=== PATIENT | male | born 1955 | race Caucasian/White ===

== ENCOUNTER 2019-04-29 08:28 | Day surgery (SDC) | payer MEDICARE, MEDICAID ==
[~2019-04-29] VITALS: Ht 188 cm; Wt 132.8 kg
[2019-04-29] VITALS (9 sets, daily range): BP systolic 108–136; BP diastolic 64–76
[~2019-04-29 08:28] MED LIST: ASPI-611 PO; ATOR20TA66 PO; COU4T PO; DOCU-28 PO; ESCI20TA PO; LORA10TA7 PO; METO25TA6 PO; MILK200C4 PO; PANT-47 PO; PER10325T PO; VITA1TAB20 PO; WARF-65 PO
[2019-04-29] MEDS ORDERED: diphenhydrAMINE 25mg capsule PO PRN (08:55)
[2019-04-29] MEDS ORDERED: normal saline 1,000 ML IV SCH (08:55)
[2019-04-29] MEDS ORDERED: RIVA20TA PO (09:11)
[2019-04-29 09:32] LABS: BASOPHILS # (AUTO) 0.1 X10'3 (0-0.2); BASOPHILS % (AUTO) 1.3 % (0-1); EOSINOPHILS # (AUTO) 0.2 X10'3 (0-0.9); EOSINOPHILS % (AUTO) 2.3 % (0-6); HEMATOCRIT 42.5 % (42.0-52.0); LYMPHOCYTES # (AUTO) 1.7 X10'3 (1.1-4.8); LYMPHOCYTES % (AUTO) 22.5 % (21-51); MEAN CORPUSCULAR HEMOGLOBIN 29.8 PG (27.0-31.0); MEAN CORPUSCULAR HGB CONC 32.9 g/dL (33.0-36.5); MEAN CORPUSCULAR VOLUME 90.6 FL (78-98); MEAN PLATELET VOLUME 9.1 FL (7.4-10.4); MONOCYTES # (AUTO) 0.6 X10'3 (0-0.9); MONOCYTES % (AUTO) 8.2 % (2-12); NEUTROPHILS # (AUTO) 4.8 X10'3 (1.8-7.7); NEUTROPHILS % (AUTO) 65.7 % (42-75); PLATELET COUNT 154 X10'3 (140-440); RED BLOOD COUNT 4.69 X10'6 (4.70-6.10); RED CELL DISTRIBUTION WIDTH 17.5 % (11.5-14.5); WHITE BLOOD COUNT 7.3 X10'3 (4.5-11.0)
[2019-04-29 09:44] LABS: ALBUMIN 4.4 G/DL (3.4-5.0); ANION GAP 7 (8-16); BLOOD UREA NITROGEN 18 MG/DL (7-18); BUN/CREATININE RATIO 21.7 (5.4-32.0); CALCIUM 8.9 MG/DL (8.5-10.1); CHLORIDE 102 MMOL/L (99-107); CREATININE 0.83 MG/DL (0.60-1.10); GLUCOSE 97 MG/DL (70-104); MAGNESIUM 1.6 MG/DL (1.5-2.4); POTASSIUM 4.4 MMOL/L (3.5-5.1); SODIUM 137 MMOL/L (135-145); TOTAL CARBON DIOXIDE 28.2 MMOL/L (24-32); eGFR > 90 ML/MIN
[2019-04-29] MEDS ORDERED: LIDOcaine 1% (10mg/ml)w/preservative injection 20ml MDV ONE (11:55)
[2019-04-29] MEDS ORDERED: iohexol 350 MG/ML 50ML vial IV ONE ×2 (11:55→12:53)
[2019-04-29] MEDS ORDERED: midazolam 2 mg/2 ml injection ONE ×4 (11:55→12:46)
[2019-04-29] MEDS ORDERED: fentaNYL/PF 50MCG/1 ML 2ML syringe ONE (11:55)
[2019-04-29] MEDS ORDERED: iohexol 350MG/ML 100ml bottle IV ONE (11:56)
== END 2019-04-29 16:30 | disposition home or self-care (01) ==
LOC: SSTAY O 08:28
PROVIDERS: ATTEND Internal Medicine Cardiovascular Disease
DX: R94.30 Abnormal result of cardiovascular function study, unspecified (principal); I10 Essential (primary) hypertension; Z87.891 Personal history of nicotine dependence; Z86.73 Personal history of transient ischemic attack (TIA), and cerebral infarction without residual deficits; E66.9 Obesity, unspecified; Z96.662 Presence of left artificial ankle joint; Z79.82 Long term (current) use of aspirin; Z79.899 Other long term (current) drug therapy; Z86.19 Personal history of other infectious and parasitic diseases
CPT/HCPCS: 36415; 80048; 83735; 85025; 85610; 93005; 93458; 99152; 99153; C1769; C1894; J1644; J2001; J2250; J3010; J7030; Q0163; Q9967; A4620; A6258; C1760

== ENCOUNTER 2022-12-29 07:53 | Inpatient (IN) | payer MEDICARE, MEDICAID ==
[2022-12-24 12:03] LABS: BASOPHILS # (AUTO) 0.1 X10'3 (0-0.2); EOSINOPHILS # (AUTO) 0.2 X10'3 (0-0.9); EOSINOPHILS % (AUTO) 2.7 % (0-6); LYMPHOCYTES # (AUTO) 1.2 X10'3 (1.1-4.8); LYMPHOCYTES % (AUTO) 20.7 % (21-51); MEAN CORPUSCULAR HGB CONC 33.3 g/dL (33.0-36.5); MEAN PLATELET VOLUME 8.8 FL (7.4-10.4); MONOCYTES # (AUTO) 0.6 X10'3 (0-0.9); MONOCYTES % (AUTO) 10.3 % (2-12); NEUTROPHILS # (AUTO) 3.9 X10'3 (1.8-7.7); NEUTROPHILS % (AUTO) 65.3 % (42-75); PRE OP HEMATOCRIT 41.2 % (42.0-52.0); PRE OP HEMOGLOBIN 13.7 g/dL (14.0-17.9); PRE OP PLATELET COUNT 130 X10'3 (140-440); RED BLOOD COUNT 4.16 X10'6 (4.70-6.10); RED CELL DISTRIBUTION WIDTH 15.2 % (11.5-14.5)
[2022-12-24 12:48] LABS: ALBUMIN 4.2 G/DL (3.4-5.0); ALBUMIN/GLOBULIN RATIO 1.2 (1.1-1.5); ALKALINE PHOSPHATASE 82 IU/L (46-116); BLOOD UREA NITROGEN 17 MG/DL (7-18); CALCIUM 8.8 MG/DL (8.5-10.1); CHLORIDE 107 MMOL/L (99-107); CREATININE 0.68 MG/DL (0.60-1.10); PRE OP ALT 28 U/L (30-65); PRE OP ANION GAP 7 (8-16); PRE OP AST 25 U/L (10-37); PRE OP GLUCOSE 101 MG/DL (70-104); PRE OP POTASSIUM 4.4 MMOL/L (3.4-5.1); PRE OP SODIUM 141 MMOL/L (135-145); TOTAL CARBON DIOXIDE 27.2 MMOL/L (24-32); TOTAL PROTEIN 7.7 G/DL (6.4-8.2); eGFR > 90 ML/MIN
[2022-12-24 12:59] LABS: PRE OP BILIRUB, TOTAL 0.6 MG/DL (0.0-1.0)
[2022-12-29] VITALS (24 sets, daily range): BP systolic 94–127; BP diastolic 45–98
[~2022-12-29] VITALS: Ht 188 cm; Wt 99.5 kg
[~2022-12-29 07:53] MED LIST changes: -ASPI-611 PO; +BACL10TA7 PO; -COU4T PO; +CYAN500T71 PO; +DIPH25CA83 PO; -DOCU-28 PO; +DOCUMENT DATE & TIME OF BETA-BLOCKER PO ONE; -ESCI20TA PO; +ESCI20TA36 PO; +HYDR-3973 PO; +LOP25T PO; -LORA10TA7 PO; -METO25TA6 PO; -MILK200C4 PO; +NITR0.4T51 SL; -PER10325T PO; +RIVA20TA PO; -VITA1TAB20 PO; +VITA400T10 PO; -WARF-65 PO; +cefazolin 2gm/D5W 100mL 100 ML IV ONE; +famotidine 20mg tablet PO ONE; +ringers solution, lacted 1,000 ML IV SCH; +tranexamic acid 650mg tablet PO ONE; +vancomycin 1,500 MG in NS 300ml IV soln IV ONE
--- NOTE | 2022-12-29 08:00 | NUR ---
CSM: PULSES PRESENT AND MARKED. MUPIROCIN CREAM WAS USED. PATIENT DID NOT WATCH THE VIDEO. EDUCATED PATIENT ON THE USE OF THE INCETIVE SPIROMETER AND ITS IMPORTANCE
[2022-12-29] MEDS ORDERED: ketorolac trometh. 30mg/ml inj. ONE (09:47)
[2022-12-29] MEDS ORDERED: ROPIVAcaine 0.5% (5mg/ml) 30ml vial ONE ×2 (09:47→11:55)
[2022-12-29] MEDS ORDERED: fentaNYL/PF 50MCG/1 ML 2ML syringe ONE (10:38)
[2022-12-29] MEDS ORDERED: midazolam 1 mg/ML 2ml injection ONE (10:39)
[2022-12-29] MEDS ORDERED: ePHEDrine 50MG/ML INJ. ONE (11:55)
[2022-12-29] MEDS ORDERED: ondansetron/PF 4mg/2ml inj ONE (11:55)
[2022-12-29] MEDS ORDERED: acetaminophen 1,000mg/100ml IV 100 ML IV ONE (11:55)
[2022-12-29] MEDS ORDERED: propofol inj 20 ML IV ONE (11:55)
[2022-12-29] MEDS ORDERED: LIDOcaine 1%/PF 5ML 10 MG/ML VIAL ONE (11:55)
[2022-12-29] MEDS ORDERED: dexamethasone sod phosphate 4mg/ml inj. ONE (11:55)
[2022-12-29] MEDS ORDERED: glycopyrrolate 0.2mg/ml inj ONE (11:55)
[2022-12-29] MEDS ORDERED: ringers solution, lacted 1,000 ML IV SCH (12:00)
[2022-12-29] MEDS ORDERED: ROPIVAcaine 0.2% (10 MG/5 ML) BOLUS INJECTION INTERSCALE PRN (12:00)
[2022-12-29] MEDS ORDERED: ondansetron/PF 4mg/2ml inj IV PRN ×2 (12:00→12:15)
[2022-12-29] MEDS ORDERED: ROPIVAcaine 0.2%/PF PUMP/bolus 550 ML INTERSCALE SCH (12:00)
[2022-12-29] MEDS ORDERED: HYDROmorphone/PF 0.2 MG/ML SYRINGE IV PRN ×2 (12:00)
[2022-12-29] MEDS ORDERED: morphine 2 MG/ML inj. syringe IV PRN (12:00)
[2022-12-29] MEDS ORDERED: acetaminophen 325mg tablet PO PRN (12:15)
[2022-12-29] MEDS ORDERED: HYDROmorphone inj. 0.5 MG/0.5 ML DISP.SYRIN IV PRN (12:15)
[2022-12-29] MEDS ORDERED: bisacodyl 10mg suppository rectal RC PRN (12:15)
[2022-12-29] MEDS ORDERED: diphenhydrAMINE 25mg capsule PO PRN ×2 (12:15)
[2022-12-29] MEDS ORDERED: oxyCODONE IR 5mg (immed. release) tablet PO PRN (12:15)
[2022-12-29] MEDS ORDERED: magnesium hydroxide 30ml (MOM) UD suspension PO PRN (12:15)
[2022-12-29] MEDS ORDERED: HYDROcodone/acetaminophen 10/325mg tab PO PRN ×2 (12:15)
[2022-12-29] MEDS ORDERED: naloxone 0.4 mg/ml inj IV PRN (12:15)
[2022-12-29] MEDS ORDERED: nitroGLYCERIN 0.4mg SUBLingual tab SL PRN (12:15)
--- NOTE | 2022-12-29 12:25 | NUR ---
Received from OR via HOSITAL BED TO ROOM 6 IN RECOVERY , accompanied by Anesthesiologist DR DOTY and report given by Anesthesiolgist. PT PRESENTS WITH 20G LEFT HAND, RIGHT SHOULDER WRAP WITH POWDER PACK AND SLING BLAISE COATES RUNNING FROM OR, SCD, VSS. Addendum: 12/29/22 at 1247 by Marianne Campbell RN, RN Amended: Links added.
--- NOTE | 2022-12-29 15:05 | NUR ---
Report called to receiving nurse SUKHDEV ASCENCIO. Transferred via HOSPITAL BED TO ROOM 346B BY MERYL ASCENCIO. BED IN LOW LOCKED POSITION, PT HOOKES UP TO VITALS MACHINE. PT CHART TAKEN TO NURSES STATION. TWO PT BELONGING BAGS TAKE TO ROOM 346B MOIRA PT. Special Issues communicated to receiving nurse. Addendum: 12/29/22 at 1526 by Mraianne Campbell RN RN Amended: Links added.
--- NOTE | 2022-12-29 15:30 | NUR ---
Received report from Marianne ASCENCIO, Patient arrived on floor at 1520, Orientated to room and educated information coordinator light, post op Vital signs started.
[2022-12-29] MEDS: HYDROmorphone 1 mg/ml syringe IV PRN ×2 (15:56→22:14)
[2022-12-29] MEDS: acetaminophen 325mg tablet PO SCH ×2 (16:00→20:23)
[2022-12-29] MEDS: baclofen 10mg tablet PO SCH ×2 (16:00→20:23)
[2022-12-29] MEDS: potassium cl 20mEq in 1/2 NS 1,000 ML IV SCH ×2 (16:37→22:19)
[2022-12-29] MEDS: ceFAZolin/D5W- 1GM premix 50 ML IV SCH (16:46)
--- NOTE | 2022-12-29 18:15 | NUR ---
Problems reprioritized. Patient report given, questions answered & plan of care reviewed with Donis ASCENCIO.
[2022-12-29] MEDS: oxyCODONE IR 5mg (immed. release) tablet PO PRN (18:59)
[2022-12-29] MEDS ORDERED: vancomycin/NS 1 GM ADD-VANTAGE 250 ML IV SCH (20:00)
[2022-12-29] MEDS: metoprolol tartrate 12.5mg (1/2 tablet) PO SCH (20:23)
[2022-12-29] MEDS: pantoprazole 40mg Tablet.DR PO SCH (20:25)
[2022-12-29] MEDS ORDERED: sennosides 8.6mg tablet PO SCH (21:00)
[2022-12-29] MEDS ORDERED: diphenhydrAMINE 25mg capsule PO SCH (21:00)
[2022-12-29] MEDS ORDERED: rivaroxaban 20mg tablet PO SCH (21:00)
[2022-12-29] MEDS ORDERED: atorvastatin 20mg tablet PO SCH (21:00)
[2022-12-30] MEDS: ceFAZolin/D5W- 1GM premix 50 ML IV SCH (00:08)
[2022-12-30] MEDS: oxyCODONE IR 5mg (immed. release) tablet PO PRN ×3 (01:44→10:18)
[2022-12-30] MEDS: acetaminophen 325mg tablet PO SCH ×3 (01:49→14:00)
[2022-12-30 02:00] VITALS: BP 118/54
[2022-12-30 06:00] VITALS: BP 128/67
--- NOTE | 2022-12-30 06:17 | NUR ---
Received report from SILVA Burgos. Patient is in no NAD
[2022-12-30 06:21] LABS: BASOPHILS # (AUTO) 0.1 X10'3 (0-0.2); BASOPHILS % (AUTO) 0.6 % (0-1); EOSINOPHILS % (AUTO) 0.3 % (0-6); HEMATOCRIT 29.4 % (42.0-52.0); HEMOGLOBIN 9.8 g/dl (14.0-17.9); LYMPHOCYTES # (AUTO) 1.6 X10'3 (1.1-4.8); LYMPHOCYTES % (AUTO) 13.7 % (21-51); MEAN CORPUSCULAR HEMOGLOBIN 33.2 PG (27.0-31.0); MEAN CORPUSCULAR HGB CONC 33.4 g/dL (33.0-36.5); MEAN CORPUSCULAR VOLUME 99.4 FL (78-98); MEAN PLATELET VOLUME 9.3 FL (7.4-10.4); MONOCYTES # (AUTO) 1.4 X10'3 (0-0.9); MONOCYTES % (AUTO) 12.3 % (2-12); NEUTROPHILS # (AUTO) 8.4 X10'3 (1.8-7.7); NEUTROPHILS % (AUTO) 73.1 % (42-75); PLATELET COUNT 121 X10'3 (140-440); RED BLOOD COUNT 2.95 X10'6 (4.70-6.10); RED CELL DISTRIBUTION WIDTH 15.6 % (11.5-14.5); WHITE BLOOD COUNT 11.5 X10'3 (4.5-11.0)
[2022-12-30 06:37] LABS: ANION GAP 6 (8-16); CHLORIDE 104 MMOL/L (99-107); POTASSIUM 4.1 MMOL/L (3.5-5.1); SODIUM 135 MMOL/L (135-145); TOTAL CARBON DIOXIDE 25.1 MMOL/L (24-32)
--- NOTE | 2022-12-30 06:37 | NUR ---
Problems reprioritized. Patient report given, questions answered & plan of care reviewed with SILVA MCCLOUD.
[2022-12-30] MEDS ORDERED: vitamin E 400 unit capsule PO SCH (08:00)
[2022-12-30] MEDS ORDERED: cyanocobalamin 500mcg tablet PO SCH (08:00)
[2022-12-30] MEDS ORDERED: ESCITALOPRAM OXALATE 5 MG TABLET PO SCH (08:00)
[2022-12-30] MEDS: pantoprazole 40mg Tablet.DR PO SCH (08:01)
[2022-12-30 08:02] VITALS: BP_SYST 113
[2022-12-30] MEDS: metoprolol tartrate 12.5mg (1/2 tablet) PO SCH (08:02)
[2022-12-30] MEDS: baclofen 10mg tablet PO SCH ×2 (08:06→12:48)
--- NOTE | 2022-12-30 12:06 | NUR ---
Aan KATZ rounded on patient, cleared for discharge. Changed the dressing on patients right shoulder w/ PA. Cold pack placed.
[2022-12-30] MEDS ORDERED: ketorolac tromethamine 15mg/ml inj. IV STA (12:11)
--- NOTE | 2022-12-30 12:22 | NUR ---
Per Ana Velez, okay to do order of Toradol IM.
[2022-12-30] MEDS ORDERED: ketorolac tromethamine 15mg/ml inj. IM ONE (12:30)
--- NOTE | 2022-12-30 14:02 | NUR ---
Joint surgery consult: Pt s/p R shoulder surgery this admit per EMR. Pt/SO seen by RD at bedside for written/verbal high protein diet ed w/ RD contact information provided. RD encouraged pt/SO to contact dietitian's office if further nutrition questions/concerns. Addendum: 12/30/22 at [address] Amended: Links added.
[2022-12-30] MEDS ORDERED: celeCOXIB 100mg capsule PO SCH (20:00)
[2022-12-31] MEDS ORDERED: acetaminophen 325mg tablet PO PRN (12:15)
== END 2022-12-30 14:50 | disposition home or self-care (01) | DRG 483 ==
LOC: PAS IN 07:53 → SUR 3N 15:33
PROVIDERS: ADMIT Orthopaedic Surgery; ATTEND Orthopaedic Surgery
PROC: 0LS30ZZ Reposition Right Upper Arm Tendon, Open Approach (ICD-10-PCS; 2022-12-29)
PROC: 3E0T3BZ Introduction of Anesthetic Agent into Peripheral Nerves and Plexi, Percutaneous Approach (ICD-10-PCS; 2022-12-29)
PROC: 0RRJ00Z Replacement of Right Shoulder Joint with Reverse Ball and Socket Synthetic Substitute, Open Approach (ICD-10-PCS; principal; 2022-12-29 10:29)
DX: M19.011 Primary osteoarthritis, right shoulder (principal); M75.121 Complete rotator cuff tear or rupture of right shoulder, not specified as traumatic; M75.21 Bicipital tendinitis, right shoulder
CPT/HCPCS: 36415; 71046; 80051; 80053; 82948; 85025; 87081; 97110; 97161; 97530; A4615; A6253; A6258; A6449; G0378; J0131; J0690; J1100; J1170; J1885; J2250; J2405; J2704; J2795; J3010; J3370; J3480; J3490; J7120; Q0163

== ENCOUNTER 2025-02-27 10:38 | Outpatient (CLI) | payer MEDICARE, MEDICAID ==
[~2025-02-27 10:38] MED LIST changes: -DOCUMENT DATE & TIME OF BETA-BLOCKER PO ONE; -cefazolin 2gm/D5W 100mL 100 ML IV ONE; -famotidine 20mg tablet PO ONE; -ringers solution, lacted 1,000 ML IV SCH; -tranexamic acid 650mg tablet PO ONE; -vancomycin 1,500 MG in NS 300ml IV soln IV ONE
--- NOTE | 2025-02-27 18:56 | CARDIOLOGY REPORT ---
APPROVED REPORT EXAM: Comprehensive 2D, Doppler, and color-flow Echocardiogram. Patient Location: OUT-PATIENT Blood Pressure: 118 / 57 mmHg Heart Rate: 57 bpm Rhythm: SINUS Indications SHORT OF BREATH EMERGENT DISSECTION OF ASCENDING AO WITH REPAIR - 2015 [facility] STERNAL WOUND INFECTION 2015 [facility] Marine Design Engineer: Harmony KELLY MD Previous echo: ? NONE AVAILABLE ? 2D Dimensions RVDd 5.4 cm LA Major7.7 cm LA Minor5.9 cmRA Major7.9 cm RA Minor5.2 cmLVOT Diameter 2.55 (1.8-2.4cm) M-Mode Dimensions Left Atrium(MM) 6.08 (2.5-4.0cm) IVSd 1.30 (0.7-1.1cm) LVDd 6.34 (4.0-5.6cm) Aortic Root 3.37 (2.2-3.7cm) PWd 1.44 (0.7-1.1cm) IVSs 1.66 cm LVDs 4.54 (2.0-3.8cm) FS (%) 28 % PWs 1.66 cm ESV(Teich) 94.4 ml LVEF(%) 54 (>50%) Aortic Valve AoV Peak Jon. 197.0 cm/s AoV VTI 41.8 cm AO Peak GR. 15.3 mmHg AO Mean GR. 8 mmHg LVOT VTI 26.29 cm LVOT Peak Jon. 125.4 cm/s EMILIANO (VMAX) 3.24 cm2 EMILIANO (VTI) 3.20 cm2 AI P 1/2 Time 460 ms Tricuspid Valve TR P. Velocity 303 cm/s RAP ESTIMATE 10 mmHg TR Peak Gr. 37 mmHg RVSP 47 mmHg LEFT VENTRICLE Moderately increased LV size with preserved function. Mild concentric hypertrophy. LVEF is 55%. RIGHT VENTRICLE RV is moderately increased in size with normal function. Elevated right heart pressures as noted above. ATRIA Left atrium is severely dilated. Right atrium is moderately dilated. AORTIC VALVE Trileaflet AV appears mildly sclerotic without stenosis. Moderate, eccentric insufficiency. Dilated L VOT/AO ROOT. MITRAL VALVE Mild MV annular calcification with thickened leaflets without stenosis. Trace regurgitation. TRICUSPID VALVE TV appears structurally normal with mildregurgitation. PULMONIC VALVE Normal PV without stenosis, mild insufficiency. GREAT VESSELS Aortic root is upper limit normal. Dilated LVOT / AO ROOT / Ascending aorta S/P ascending aort ic graft repair. Arch window - TDS IVC is dilated and collapses less than 50% with inspiration. PERICARDIUM Normal pericardium. No effusion.
== END 2025-02-27 23:59 | disposition home or self-care (01) ==
LOC: CARD DIAG 10:38
PROVIDERS: ATTEND Internal Medicine Cardiovascular Disease
DX: I08.8 Other rheumatic multiple valve diseases (principal); R06.02 Shortness of breath
CPT/HCPCS: 93306

== ENCOUNTER 2025-04-20 10:34 | Outpatient (CLI) | payer MEDICARE, MEDICAID ==
--- NOTE | 2025-04-20 12:15 | RADIOLOGY REPORT ---
CTA Chest with intravenous contrast INDICATION: DYSPNEA COMPARISON: None TECHNIQUE: Multidetector spiral CTA of the chest was performed of the chest with intravenous contrast . PULMONARY ANGIOGRAPHY PROTOCOL was utilized using a bolus-tracking technique centered on the main p ulmonary artery. Axial, coronal and sagittal multiplanar and MIP reformats were performed. CONTRAST: Type of contrast: Omni 350 Contrast injected: 100 ml Radiation dose : Chest: CTDI volume is 34 mGy. Dose-length product is 963 mGy*cm The dose indicators for CT are the volume computed Tomography (CT) dose Index (CTDIvol) and the dose Length product (DLP), and are measured in units of mGy and mGy-cm, respectively. These indicators are not patient dose, but values generated from the CT scanner acquisition factors. The report includes radiation exposure data for exposures received during this examination. Findings: Pulmonary artery: No pulmonary embolism Lower neck: Normal thyroid. Lungs: No focal consolidation, pleural effusion or pneumothorax. Subpleural scarring left lower lung. Heart/Vascular Structures: Moderate cardiomegaly. Ascending aortic graft measuring up to 44 mm. Lymph Nodes: No adenopathy Pleura: No pleural effusion or significant pneumothorax. Musculoskeletal: Multiple old left rib fractures. Soft tissues: Normal. Upper abdomen: Left renal cyst. IMPRESSION: 1. No pulmonary embolism. 2. Subpleural scarring left lower lung associated with multiple old left rib fractures. Ascending aor tic graft measuring up to 44 mm. Moderate cardiomegaly. HS:Y
== END 2025-04-20 23:59 | disposition home or self-care (01) ==
LOC: RAD 10:34
PROVIDERS: ATTEND Internal Medicine Cardiovascular Disease
DX: S22.42XA Multiple fractures of ribs, left side, initial encounter for closed fracture (principal); I51.7 Cardiomegaly; R06.00 Dyspnea, unspecified; N28.1 Cyst of kidney, acquired; J98.4 Other disorders of lung; X58.XXXA Exposure to other specified factors, initial encounter; Y93.9 Activity, unspecified; Y92.89 Other specified places as the place of occurrence of the external cause; Y99.8 Other external cause status
CPT/HCPCS: 71275; Q9967

== ENCOUNTER 2025-05-08 06:44 | Day surgery (SDC) | payer MEDICARE, MEDICAID ==
[~2025-05-08] VITALS: Ht 188 cm; Wt 116.9 kg
[2025-05-08] VITALS (10 sets, daily range): BP systolic 126–165; BP diastolic 73–91; PULSE 71–78; RESP 10–15; TEMP 97.9; O2SAT 93–99
--- NOTE | 2025-05-08 07:11 | ELECTROCARDIOGRAPH REPORT ---
[facility] Test Date: 2025-05-08 Test Time: 07:10:24 Pat Name: JUANA ROMERO Department: SHORT STAY 1ST FLOOR Room: Gender: M Double Cutter: CHRISTOPHER : 1955 Requested By: AMADOR CLIFTON Order Number: [id number] Reading MD: Dr. CAREMLA Medellin Measurements Intervals [place] Rate: 77 P: -23 [place]: 192 QRS: 20 QRSD: 168 T: 24 QT: 443 QTc: 502 Interpretive Statements Sinus rhythm Atrial premature complexes Right bundle branch block Electronically Signed On 05-08-2025 18:19:[address] CARMELA Medellin Please click the below link to view image of tracing.
[2025-05-08 07:51] LABS: MEAN PLATELET VOLUME 8.8 FL (7.4-10.4); RED CELL DISTRIBUTION WIDTH 15.5 % (11.5-14.5)
[2025-05-08] MEDS ORDERED: POTA-206 PO (07:55)
[2025-05-08] MEDS ORDERED: HYDR-3965 PO (07:55)
[2025-05-08] MEDS ORDERED: ALBU18HF2 INH (07:55)
[2025-05-08] MEDS ORDERED: FURO80TA3 PO (07:55)
[2025-05-08] MEDS ORDERED: FLUT15.810 (07:55)
[2025-05-08 08:09] LABS: CREATININE 0.86 MG/DL (0.60-1.10); TOTAL CARBON DIOXIDE 28.0 MMOL/L (24-32); eCRCL 90 ML/MIN; eGFR 87 ML/MIN
[2025-05-08 08:10] LABS: INR 1.0 INR
[2025-05-08] MEDS ORDERED: verapamil 2.5 mg/ml inj IV ONE (08:37)
[2025-05-08] MEDS ORDERED: heparin 1,000unit/ml 10ml vial 10 ML ONE (08:37)
[2025-05-08] MEDS ORDERED: iohexol 350 MG/ML 50ML vial IV ONE ×2 (08:37→10:27)
[2025-05-08] MEDS ORDERED: LIDOcaine 1% (10mg/ml) 2ml vial ONE ×2 (08:37→09:46)
[2025-05-08] MEDS ORDERED: fentaNYL/PF 50MCG/1 ML 2ML syringe ONE (08:37)
[2025-05-08] MEDS ORDERED: midazolam 1 mg/ML 2ml injection ONE ×3 (08:37→09:50)
[2025-05-08] MEDS ORDERED: nitroGLYCERIN 500mcg/5mL D5W 5 ML IV ONE (08:42)
[2025-05-08] MEDS: sodium bicarbonate 1meq/ml syr 150 ML in dextrose 5%-water 1,000 ML IV ONE (09:10)
[2025-05-08] MEDS ORDERED: LIDOcaine 1% 30ml preserv. free vial ONE (10:01)
[2025-05-08] MEDS ORDERED: protamine sulfate 10mg/ml inj. ONE (10:46)
--- NOTE | 2025-05-08 12:16 | CARDIOLOGY REPORT ---
DATE OF SERVICE: 05/08/2025 DICTATING PHYSICIAN: AMADOR CLIFTON, DO CARDIAC CATHETERIZATION REPORT REFERRING PHYSICIAN: Tarik Wong MD. 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 There is no history for significant coronary disease. At the present time, he has low-level level ground exertional dyspnea. An echocardiogram has demonstrated reasonably good LV function and has been described as showing mild to moderate AI and at least mild MR. Given his past history, a cardiac catheterization has been ordered. PROCEDURES PERFORMED: * Right heart catheterization. * Left heart catheterization. * Left ventriculography. * Selective coronary arteriography. * A 75-minute conscious sedation supervision. DESCRIPTION OF PROCEDURE: The patient was sedated with Versed, fentanyl, Dilaudid and Benadryl, and was still not very sedate because of chronic use of hydrocodone. He has chronic back pain. Nevertheless, an Angiocath that appeared to be placed in the cephalic vein was used in an attempt to do a right heart catheterization; however, the guidewire would not satisfactorily feed medially and tended to bunch in the upper arm and irrespective of the type of wire shape would not go farther, therefore, that site was abandoned. The right inguinal area was infiltrated with 1% lidocaine using a micropuncture set and a Seldinger technique. A 6-Bangladeshi sheath was placed in the femoral vein. A right heart catheterization was performed using a 6-Bangladeshi Magnolia-Agapito catheter. Cardiac output was determined using a thermal dilution technique. Using a Seldinger technique, the radial artery was cannulated with a 6-Bangladeshi sheath. 2000mcm of NTG and s.5 mg of verapamil were given sirectly into the sheath. 5,000 units of heparin were given in a peripheral IV. Left heart catheterization and left ventriculography were performed using a 6-Bangladeshi pigtail catheter. An aortogram was performed using a 6-Bangladeshi pigtail catheter while recording cineangiographically in an [place] projection. Coronary arteriography was performed using a 6-Bangladeshi #5 Vane catheter for the left coronary artery and a 6-Bangladeshi #4 Vane catheter for the right coronary artery. The arterial sheath was removed and Vasc band was applied. Direct pressure was applied to both venous access sites. RESULTS: HEMODYNAMIC DATA: The mean right atrial pressure was 13 mmHg. Pulmonary arterial pressure was 30/13 mmHg. Mean pulmonary capillary wedge pressure was 19 mmHg. Left ventricular end diastolic pressure was 13 mmHg. There was only 1 mm gradient across the aortic valve, which is known to be sclerotic. Cardiac output was 5.15 L/min. LEFT VENTRICULOGRAM: The left ventriculogram was technically satisfactory. The estimated ejection fraction was 50%. Mitral regurgitation was not apparent. AORTOGRAPHY: The aortogram was technically satisfactory, 3 beats into the aortogram. Opacification in the left ventricle was graded as 3+. CORONARY ARTERIOGRAPHY: The coronary arteriograms were technically satisfactory. The patient had a right dominant system. LEFT MAIN CORONARY ARTERY: The left vein was a large unobstructed vessel bifurcating into the left anterior descending and circumflex coronary arteries. LEFT ANTERIOR DESCENDING CORONARY ARTERY: The LAD was a large transapical vessel with a small, long proximal first diagonal. There was a large second diagonal taking its origin from the mid LAD. There were no obstructive lesions in the left anterior descending coronary artery. CIRCUMFLEX CORONARY ARTERY: The circumflex was a medium to large main stem vessel with a small proximal first obtuse marginal and a medium-sized inferior obtuse marginal branch. There were minor luminal irregularities, but no obstructive lesions in the circumflex coronary artery. RIGHT CORONARY ARTERY: The right coronary artery was a large main stem vessel. There was a long, medium-sized posterior descending branch, a very small first 2 posterolaterals were very small in size. There was a long medium-sized third posterolateral and a small caliber fourth posterolateral. There were no obstructive lesions in the right coronary artery. CONCLUSIONS: * Mild pulmonary hypertension. Pulmonary arterial pressure was 30/13 mmHg. * Mean pulmonary capillary wedge pressure was 11 with left ventricular end diastolic pressure of 13. There was only a 1 mm gradient across the aortic valve. Cardiac output was 5.15 L/min. * The aortagram demonstrated at least 3+ aortic regurgitation. * The aortic root is quite large. * No significant mitral regurgitation noted on this study. * No obstructive coronary artery disease. * Left ventricular systolic function appeared to be only mildly below normal with an estimated ejection fraction of 50%. RECOMMENDATIONS: Ongoing medical therapy. AMADOR CLIFTON DO TID: [id number] RECEIPT: [id number] JOSE MTDD
[2025-05-08] MEDS ORDERED: OXAZEpam 15mg capsule PO PRN (13:10)
[2025-05-08] MEDS ORDERED: ondansetron/PF 4mg/2ml inj IV PRN (13:10)
[2025-05-08] MEDS ORDERED: HYDROcodone/acetaminophen 5mg/325mg tablet PO PRN (13:10)
[2025-05-08] MEDS ORDERED: HYDROcodone/acetaminophen 10/325mg tab PO PRN (13:10)
== END 2025-05-08 14:25 | disposition home or self-care (01) ==
LOC: SSTAY O 06:44
PROVIDERS: ATTEND Internal Medicine Cardiovascular Disease
DX: I35.1 Nonrheumatic aortic (valve) insufficiency (principal); I49.1 Atrial premature depolarization; I45.10 Unspecified right bundle-branch block; I48.0 Paroxysmal atrial fibrillation; I48.92 Unspecified atrial flutter; G47.30 Sleep apnea, unspecified; Z86.73 Personal history of transient ischemic attack (TIA), and cerebral infarction without residual deficits
CPT/HCPCS: 36415; 80048; 83735; 85025; 85610; 93005; 93460; 93567; 99152; 99153; A6258; A6402; C1751; C1894; J1171; J1200; J1644; J2003; J2250; J2720; J3010; J3490; J7030; J7070; Q0163; Q9967; Z7610; A6449

== ENCOUNTER → 2025-05-12 | Day surgery (SDC) | payer MEDICARE, MEDICAID ==
[2025-05-12] VITALS (13 sets, daily range): BP systolic 127–167; BP diastolic 76–94; PULSE 74–97; RESP 14–22; TEMP 97.9; O2SAT 94–99
[~2025-05-12] VITALS: Ht 188 cm; Wt 115.6 kg
[~2025-05-12] MED LIST changes: +ALBU18HF2 INH; +FLUT15.810; +FURO80TA3 PO; +HYDR-3965 PO; -HYDR-3973 PO; -LOP25T PO; +POTA-206 PO
[2025-05-12 10:17] LABS: MEAN PLATELET VOLUME 8.7 FL (7.4-10.4); RED CELL DISTRIBUTION WIDTH 15.0 % (11.5-14.5)
[2025-05-12 10:26] LABS: INR 1.3 INR
[2025-05-12 10:45] LABS: CREATININE 0.88 MG/DL (0.60-1.10); MYOGLOBIN 55.0 ng/ml (16-96); TOTAL CARBON DIOXIDE 27.5 MMOL/L (24-32); eGFR 85 ML/MIN
[2025-05-12] MEDS: fentaNYL/PF 50MCG/1 ML 2ML syringe IV ONE (11:02)
[2025-05-12] MEDS: glycopyrrolate 0.2mg/ml inj IV ONE (11:02)
[2025-05-12] MEDS: MIDAZolam 1mg/ml 10ml vial IV ONE (11:02)
[2025-05-12] MEDS: normal saline 1000ml 1,000 ML IV SCH (11:02)
--- NOTE | 2025-05-12 15:16 | CARDIOLOGY REPORT ---
APPROVED REPORT EXAM: Transesophageal echocardiogram with color flow Doppler. Patient Location: [facility] 10 Blood Pressure: 138/81 mmHg Heart Rate: 82 bpm Indications NONRHEUMATIC AORTIC VALVE INSUFFICIENCY HX of Ascending Aorta Dissection and Repair (2016, [facility]) CAT BREEDER: Harmony Ceja DO Previous ECHO: 02/27/25, [facility], EF: 55; modRVE/IJEOMA; sevLAE; modAI; mTR; dilated AO Root LEFT VENTRICLE Left ventricle appears grossly dilated in size. Systolic function not readily estimable. not determin ed RIGHT VENTRICLE Right ventricle is not well visualized. AORTIC VALVE Trileaflet AV appears mildly sclerotic without stenosis. Mild to moderate insufficiency. is defini tely not severe. MITRAL VALVE Mild mitral annular calcification without stenosis. Mild regurgitation. GREAT VESSELS Aortic root appearss mildly dilated. PERICARDIUM Normal pericardium. No effusion.
== END | disposition home or self-care (01) ==
LOC: SSTAY O 09:30 → EDSTATUS 12:00
PROVIDERS: ATTEND Internal Medicine Cardiovascular Disease
DX: I08.0 Rheumatic disorders of both mitral and aortic valves (principal); I48.0 Paroxysmal atrial fibrillation; I48.92 Unspecified atrial flutter; G47.30 Sleep apnea, unspecified; Z86.73 Personal history of transient ischemic attack (TIA), and cerebral infarction without residual deficits
CPT/HCPCS: 36415; 80048; 83735; 83874; 85025; 85610; 93312; 93325; J2250; J3010; J3490; J7030

== ENCOUNTER 2025-06-26 10:29 | Outpatient (CLI) | payer MEDICARE, MEDICAID ==
[~2025-06-26 10:29] MED LIST changes: -DIPH25CA83 PO
--- NOTE | 2025-06-26 11:27 | VASCULAR REPORT ---
Lower Extremity Duplex Doppler Reflux Study Date: 06/26/2025 10:45 AM Clinical History: Edema Comparison: None Images submitted: Vein Imaging (Right) CFV (R): Compressible, Spontaneous, Respirophasic, Augmentation Reflux: ms SFJ (R): Compressible, Spontaneous, Respirophasic, Augmentation Reflux: ms FEM (R): Compressible, Spontaneous, Respirophasic, Augmentation Reflux: ms POP (R): Compressible, Spontaneous, Respirophasic, Augmentation Reflux: ms DFV (R): Compressible, Spontaneous, Respirophasic, Augmentation Reflux: ms PTV (R): Compressible, Spontaneous, Respirophasic, Augmentation Reflux: ms GSV (R): Compressible, Spontaneous, Respirophasic, Augmentation Reflux: ms Peroneals (R): Compressible, Spontaneous, Respirophasic, Augmentation Reflux: ms Vein Imaging (Left) CFV (L): Spontaneous, Respirophasic, Augmentation Reflux: ms CONCLUSION No sonographic evidence for thrombus detected by image in the deep or superficial venous systems of of the right lower extremity. All vessels interrogated were compressible and augment with distal compressions. Spontaneous, respirophasic flow is noted throughout the right lower extremity. The contralateral common femoral vein appears patent and and displays symmetrical waveforms, suggesting no proximal obstruction to flow.
== END 2025-06-26 23:59 | disposition home or self-care (01) ==
LOC: VAS 10:29
DX: R60.0 Localized edema (principal)
CPT/HCPCS: 93971

== ENCOUNTER 2025-08-02 08:48 | Outpatient (CLI) | payer MEDICARE, MEDICAID ==
--- NOTE | 2025-08-02 10:38 | RADIOLOGY REPORT ---
CLINICAL HISTORY: MALIG NEOPLASM OF LIVER, NOT SPECIFIED PRIMARY OR SEC TECHNIQUE: CT of the abdomen and pelvis was performed with intravenous contrast. Arterial and venous phase imaging was performed. 100 mL Omnipaque 300 injected This exam was performed according to our departmental dose optimization program. Up-to-date CT equipment and radiation dose reduction techniques are utilized as appropriate. CTDIVol: 0.14+ 36.08+ 35.98 mGy DLP: 2756.38 mGy-cm WID: COMPARISON: None FINDINGS: Lower Thorax: Normal-sized heart without pericardial effusion. At least mild partially imaged calcified coronary artery disease. There are chronic nonunited lateral left 8th, 9th, and 10th rib fracture deformities. Linear areas of scarring in the left lung base. Liver and Biliary system: Mild hepatomegaly measuring 19 cm craniocaudal on series 604, image 52. There is diffuse hepatic steatosis. Mild nodular contour of the liver. No enhancing hepatic lesion is seen. Major portal veins are patent. The gallbladder is normal caliber. There is no biliary ductal dil atation. Small portosystemic collateral vessels are seen in the upper abdomen. Spleen: Unremarkable. Adrenal Glands and Kidneys: Normal adrenal glands. Nonspecific bilateral perinephric stranding. There are small bilateral renal hypodensities in the upper poles which are likely cysts. No hydronephrosis or nephrolithiasis. Pancreas and Retroperitoneum: Unremarkable. Aorta and Major Vessels: Aneurysm of the infrarenal abdominal aorta measuring 3.5 cm transverse on series 601, image 63 and 3.6 cm AP on series 602, image 74. Patent origins of the celiac axis, SMA, 3 right and single left renal arteries, and ANGIE. 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 Ectasia of the left common iliac artery. There is marked calcified atherosclerotic plaque in the bilateral common iliac arteries and moderate mixed atherosclerotic plaque in the aortoiliac vessels otherwise. Bowel, Mesentery and Peritoneal space: Normal caliber small and large bowel. There is mild distal colonic diverticulosis. Normal appendix. There is no free intraperitoneal air or fluid collection. Pelvis: There is beam hardening artifact from bilateral hip arthroplasties limiting evaluation of the pelvis. No definite pelvic lymphadenopathy. Urinary bladder is mildly distended. Abdominal wall and Osseous Structures: Bilateral hip arthroplasties. Visualized components of the hardware are intact. There is a battery pack in the posterior right flank with stimulator leads coursing in the posterior right abdominal wall entering the spinal canal at the level of T12-L1 and terminates at the level of T9. Multilevel lower thoracic and lumbar spondylosis. Posterior spinal fixation hardware with bilateral rods and transpedicular screws at L3-S1 with interbody spacers. Prior laminectomies at L4 and L5. IMPRESSION: 1. Mild hepatomegaly with mild hepatic steatosis. 2. No enhancing hepatic lesion . 3. Mild nodular contour of the liver which could reflect fibrosis or cirrhosis. Correlate with clinical history and liver enzymes. 4. Small portosystemic collateral vessels in the upper abdomen. 5. Aneurysm of infrarenal abdominal aorta measuring 3.5 cm transverse and 3.6 cm AP. 6. 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 7. Nonspecific bilateral perinephric stranding. This could be related to medical renal disease or infection. Correlate with urinalysis. 8. At Least mild partially imaged calcified coronary artery disease. 9. Mild distal colonic diverticulosis. 10. Posterior spinal fixation hardware at L3-S1, and laminectomies at L4 and L5, bilateral hip arthroplasties.
== END 2025-08-02 23:59 | disposition home or self-care (01) ==
LOC: RAD 08:48
PROVIDERS: ATTEND Internal Medicine Cardiovascular Disease
DX: S22.42XK Multiple fractures of ribs, left side, subsequent encounter for fracture with nonunion (principal); C22.9 Malignant neoplasm of liver, not specified as primary or secondary; K57.30 Diverticulosis of large intestine without perforation or abscess without bleeding; R16.0 Hepatomegaly, not elsewhere classified; K76.0 Fatty (change of) liver, not elsewhere classified; K76.89 Other specified diseases of liver; I71.43 Infrarenal abdominal aortic aneurysm, without rupture; I25.10 Atherosclerotic heart disease of native coronary artery without angina pectoris; X58.XXXD Exposure to other specified factors, subsequent encounter
CPT/HCPCS: 74177; Q9967

== ENCOUNTER 2025-08-03 10:12 | Outpatient (CLI) | payer MEDICARE, MEDICAID ==
[~2025-08-03 10:12] MED LIST changes: +iohexol 300mg/ml 100ml inj. ONE
== END 2025-08-03 23:59 | disposition home or self-care (01) ==
LOC: RAD 10:12
DX: R13.10 Dysphagia, unspecified (principal); I63.9 Cerebral infarction, unspecified
CPT/HCPCS: Q9967